=== PATIENT | female | born 1970 | race Caucasian/White ===

== ENCOUNTER 2018-08-23 06:02 | Day surgery (SDC) | payer OTHER ==
[~2018-08-23 06:02] MED LIST: CEFAZOLIN 2 GM/50 ML (PMX) 50 ML IVPB
[2018-08-23] MEDS ORDERED: SODIUM CL BACTERIOSTATIC 30 ML INJ (06:57)
[2018-08-23] MEDS ORDERED: morphine SULFATE/PF (10 MG/10 ML) INJ (06:58)
[2018-08-23] MEDS ORDERED: EPHEDrine 50 MG INJ (07:00)
[2018-08-23] MEDS ORDERED: SEVOFLURANE 15 MIN (07:00)
[2018-08-23] MEDS ORDERED: LIDOCAINE 2% (SDV) 5 ML INJ (07:36)
[2018-08-23] MEDS ORDERED: PROPOFOL 20 ML (07:36)
[2018-08-23] MEDS ORDERED: MEPERIDINE 100 MG INJ (07:36)
[2018-08-23] MEDS ORDERED: CEFAZOLIN 1 GM INJ (07:36)
[2018-08-23] MEDS ORDERED: ONDANSETRON 4 MG INJ (07:37)
[2018-08-23] MEDS ORDERED: METOCLOPRAMIDE 10 MG INJ (07:37)
[2018-08-23] MEDS ORDERED: ATROPINE 1 MG/10 ML SYRINGE (07:51)
[2018-08-23] MEDS ORDERED: MIDAZOLAM 1 MG/ML 2 ML INJ IV (08:30)
[2018-08-23] MEDS ORDERED: DIPHENHYDRAMINE 50 MG INJ IV (08:30)
[2018-08-23] MEDS ORDERED: FENTAnyl 50 MCG/ML VIAL IV ×2 (08:30)
[2018-08-23] MEDS ORDERED: METOCLOPRAMIDE 10 MG INJ IV (08:30)
[2018-08-23] MEDS ORDERED: OXYCODONE/ACETAMINOPHEN (5/325) TAB PO (08:30)
[2018-08-23] MEDS: morphine SULFATE/PF (10 MG/10 ML) INJ (08:37)
[2018-08-23] MEDS: SODIUM CL BACTERIOSTATIC 30 ML INJ (08:37)
[2018-08-23] MEDS: EPINEPHrine 1 MG INJ (08:48)
[2018-08-23] MEDS: FENTAnyl 50 MCG/ML VIAL IV ×2 (08:58→09:03)
[2018-08-23] MEDS: ONDANSETRON 4 MG INJ IV (08:58)
[2018-08-23] MEDS: MEPERIDINE 25 MG INJ IV (08:59)
[2018-08-23] MEDS ORDERED: HYDROCODONE/APAP (5/325) TAB PO (09:00)
[2018-08-23] MEDS: OXYCODONE/ACETAMINOPHEN (5/325) TAB PO (09:25)
[2018-08-23] MEDS: HYDROCODONE/APAP (5/325) TAB PO (10:10)
== END 2018-08-23 10:45 | disposition home or self-care (01) ==
LOC: SDS 06:02
DX: S83.281A Other tear of lateral meniscus, current injury, right knee, initial encounter (principal); M67.51 Plica syndrome, right knee; M94.261 Chondromalacia, right knee; K21.9 Gastro-esophageal reflux disease without esophagitis; X58.XXXA Exposure to other specified factors, initial encounter; Y93.89 Activity, other specified; Y92.89 Other specified places as the place of occurrence of the external cause; Y99.8 Other external cause status
CPT/HCPCS: 29881